=== PATIENT | female | born 1970 | race Caucasian/White ===

== ENCOUNTER → 2019-02-04 | Outpatient (CLI) | payer BC ==
[~2019-02-04] MED LIST: Avapro150 MG PO; CLON.2 PO; GABA100 PO; HYDCHL25 PO; Hydrochloroth12.5 MG PO
[2019-02-05 15:07] LABS: HPV 16 Negative (Negative); HPV 18 Negative (Negative); HPV OTHER HR TYPES Negative (Negative)
== END | disposition home or self-care (01) ==
LOC: LAB SHORT 10:05 → LAB 10:05
PROVIDERS: Nurse Practitioner Obstetrics & Gynecology
DX: Z01.419 Encounter for gynecological examination (general) (routine) without abnormal findings (principal)
CPT/HCPCS: 87624; G0123

== ENCOUNTER 2020-09-06 11:13 | Day surgery (SDC) | payer BC, SELFPAY ==
[~2020-09-06] VITALS: Ht 167.6 cm; Wt 97.8 kg
--- NOTE | 2020-09-06 12:05 | NUR ---
09/06/20 1205 Chucky Quinones CALL LIGHT WITHIN REACH
--- NOTE | 2020-09-06 13:36 | NUR ---
09/06/20 1336 Lilian Wall PATIENT VOIDED PRIOR TO COMING TO THE OR. [facility]MICHI BROUGHT PATIENT TO THE OR.
== END 2020-09-06 13:51 | disposition home or self-care (01) ==
LOC: ORSCSDS 11:13
PROVIDERS: Obstetrics & Gynecology
PROC: 0UDB8ZX Extraction of Endometrium, Via Natural or Artificial Opening Endoscopic, Diagnostic (ICD-10-PCS; principal; 2020-09-06 12:30)
DX: N85.00 Endometrial hyperplasia, unspecified (principal); R93.89 Abnormal findings on diagnostic imaging of other specified body structures; I10 Essential (primary) hypertension; Z79.899 Other long term (current) drug therapy; E66.9 Obesity, unspecified; Z68.34 Body mass index [BMI] 34.0-34.9, adult
CPT/HCPCS: 88305; A9270; J1885; J2250; J2405; J2704; J3010; J7120